=== PATIENT | female | born 1945 | race Caucasian/White ===

== ENCOUNTER 2022-07-07 14:30 | Emergency (ER) | payer OTHER, BC ==
[2022-07-07 14:44] VITALS: TEMP 98.6; BMI 19.6
[2022-07-07] MEDS ORDERED: SODIUM CHLORIDE 0.9% 500 ML INFUS.BAG IV ONE (14:44)
[2022-07-07 15:38] LABS: EPITHELIAL CELLS RARE /hpf
[2022-07-07 16:21] LABS: HEMATOCRIT 38.4 % (32.4-45.2); HEMOGLOBIN 13.2 G/dL (10.7-15.3); MCHC 34.3 g/dl (32.0-36.0); MEAN CELL VOLUME 93.4 fl (80-96); MEAN PLT VOLUME 8.1 fl (7.5-11.1); PLATELET COUNT 315.5 10^3/uL (134-434); RBC 4.11 10^6/uL (3.60-5.2); RDW 13.6 % (11.6-15.6); WHITE BLOOD COUNT 8.5 10^3/uL (4.0-10.8)
[2022-07-07 16:23] LABS: ALBUMIN 4.3 g/dl (3.4-5.0); BILIRUBIN,TOTAL 0.9 mg/dl (0.2-1); CALCIUM 9.5 mg/dl (8.5-10); CREATININE 0.7 mg/dl (0.55-1.3); TOT PROT 6.9 g/dl (6.4-8.2)
[2022-07-07 17:51] LABS: PLATELET ESTIMATE ADEQUATE
[2022-07-07 18:24] VITALS: BP 118/66; PULSE 84; RESP 16
== END 2022-07-07 18:31 | disposition home or self-care (01) ==
LOC: FER 14:30
DX: R55 Syncope and collapse (principal); R00.2 Palpitations
CPT/HCPCS: 0241U-QW; 36415; 71045-TC-FY; 80053; 81003; 81015; 84484; 85027; 87086; 93005; 99285-25